=== PATIENT | female | born 1995 | race Two or more races ===

== ENCOUNTER 2016-09-05 22:44 | Emergency (ER) | payer SELFPAY ==
[~2016-09-05] VITALS: Ht 180.3 cm; Wt 150.0 kg
[2016-09-05] MEDS ORDERED: HALOPERIDOL 5 MG/ML IM STA (23:16)
[2016-09-05] MEDS ORDERED: HALOPERIDOL 5 MG/ML ONE (23:23)
[2016-09-05] MEDS ORDERED: LORazepam 2 MG/ML, 1ML ONE (23:24)
[2016-09-05] MEDS ORDERED: LORazepam 2 MG/ML, 1ML IM ONE (23:30)
[2016-09-05 23:49] LABS: ASPARTATE AMINO TRANSFERASE 12 U/L (15-37); BLOOD UREA NITROGEN 9 mg/dL (7-18)
[2016-09-06 01:35] VITALS: BP 115/55
== END 2016-09-06 01:48 | disposition home or self-care (01) ==
LOC: ED 23:59
DX: R10.84 Generalized abdominal pain (principal); R11.10 Vomiting, unspecified
CPT/HCPCS: 36415; 80053; 81003; 83605; 83690; 85025; 93005; 96372; 99285; J1630; J2060